=== PATIENT | male | born 1940 | race Caucasian/White ===

== ENCOUNTER 2018-07-12 07:40 | Emergency (ER) | payer MEDICARE ==
[~2018-07-12] VITALS: Ht 177.8 cm; Wt 95.9 kg
[2018-07-12 07:43] VITALS: BP 144/80
[2018-07-12] MEDS ORDERED: GABA300C PO (08:11)
[2018-07-12] MEDS ORDERED: ACYC5CRE2 TP (08:11)
[2018-07-12] MEDS ORDERED: ACYC-202 PO (08:11)
== END 2018-07-12 08:34 | disposition home or self-care (01) ==
LOC: ER 07:41
DX: B02.9 Zoster without complications (principal)
CPT/HCPCS: 99283

== ENCOUNTER 2020-04-20 09:00 | Emergency (ER) | payer MEDICARE ==
[~2020-04-20] VITALS: Ht 177.8 cm; Wt 88.0 kg
[~2020-04-20 09:00] MED LIST: GABA300C PO
[2020-04-20 09:02] VITALS: BP 110/80
[2020-04-20] MEDS ORDERED: NYST1000 PO (09:31)
== END 2020-04-20 09:46 | disposition home or self-care (01) ==
LOC: ER 09:00
DX: B37.0 Candidal stomatitis (principal); Z79.899 Other long term (current) drug therapy
CPT/HCPCS: 99284

== ENCOUNTER 2021-09-03 09:50 | Emergency (ER) | payer MEDICARE ==
[~2021-09-03] VITALS: Ht 175.3 cm; Wt 90.9 kg
[2021-09-03 10:23] LABS: BASOPHILS % (AUTO) 0.7 % (0-1); EOSINOPHILS # (AUTO) 0.3 X10'3 (0-0.9); HEMATOCRIT 38.4 % (42.0-52.0); HEMOGLOBIN 13.2 g/dl (14.0-17.9); LYMPHOCYTES # (AUTO) 1.3 X10'3 (1.1-4.8); LYMPHOCYTES % (AUTO) 28.9 % (21-51); MEAN CORPUSCULAR HEMOGLOBIN 30.5 PG (27.0-31.0); MEAN CORPUSCULAR HGB CONC 34.4 g/dL (33.0-36.5); MEAN CORPUSCULAR VOLUME 88.6 FL (78-98); MONOCYTES # (AUTO) 0.3 X10'3 (0-0.9); MONOCYTES % (AUTO) 6.9 % (2-12); NEUTROPHILS # (AUTO) 2.5 X10'3 (1.8-7.7); NEUTROPHILS % (AUTO) 57.5 % (42-75); PLATELET COUNT 203 X10'3 (140-440); RED BLOOD COUNT 4.33 X10'6 (4.70-6.10); RED CELL DISTRIBUTION WIDTH 13.1 % (11.5-14.5); WHITE BLOOD COUNT 4.4 X10'3 (4.5-11.0)
[2021-09-03 10:39] LABS: ALANINE AMINOTRANSFERASE 41 U/L (12-78); ALBUMIN 3.7 G/DL (3.4-5.0); ALBUMIN/GLOBULIN RATIO 1.1 (1.1-1.5); ALKALINE PHOSPHATASE 70 IU/L (46-116); ANION GAP 9 (8-16); ASPARTATE AMINO TRANSFERASE 25 U/L (10-37); BILIRUBIN,TOTAL 0.4 MG/DL (0.1-1.0); BLOOD UREA NITROGEN 10 MG/DL (7-18); BUN/CREATININE RATIO 10.9 (5.4-32.0); CALCIUM 8.2 MG/DL (8.5-10.1); CHLORIDE 105 MMOL/L (99-107); CREATININE 0.92 MG/DL (0.60-1.10); GLUCOSE 88 MG/DL (70-104); POTASSIUM 3.9 MMOL/L (3.5-5.1); SODIUM 141 MMOL/L (135-145); TOTAL CARBON DIOXIDE 26.9 MMOL/L (24-32); TOTAL PROTEIN 7.2 G/DL (6.4-8.2); eGFR 80 ML/MIN
--- NOTE | 2021-09-03 10:40 | NUR ---
ok with not starting an IV.
--- NOTE | 2021-09-03 11:03 | NUR ---
Pt awaiting lab results. No apparent distress or needs at this time
[2021-09-03 11:51] VITALS: BP 154/86
== END 2021-09-03 11:52 | disposition home or self-care (01) ==
LOC: ER 09:50
DX: R07.89 Other chest pain (principal); M54.89 Other dorsalgia; R05.9 Cough, unspecified; Z79.899 Other long term (current) drug therapy
CPT/HCPCS: 36415; 71045; 80053; 83880; 84484; 85025; 93005; 99285

== ENCOUNTER 2022-05-02 13:41 | Emergency (ER) | payer MEDICARE ==
[~2022-05-02] VITALS: Ht 176.5 cm; Wt 88.6 kg
[2022-05-02 14:35] LABS: BASOPHILS % (AUTO) 0.8 % (0-1); EOSINOPHILS # (AUTO) 0.2 X10'3 (0-0.9); EOSINOPHILS % (AUTO) 3.8 % (0-6); HEMATOCRIT 40.3 % (42.0-52.0); HEMOGLOBIN 13.8 g/dl (14.0-17.9); LYMPHOCYTES # (AUTO) 1.3 X10'3 (1.1-4.8); LYMPHOCYTES % (AUTO) 26.6 % (21-51); MEAN CORPUSCULAR HEMOGLOBIN 29.5 PG (27.0-31.0); MEAN CORPUSCULAR HGB CONC 34.3 g/dL (33.0-36.5); MEAN CORPUSCULAR VOLUME 86.1 FL (78-98); MEAN PLATELET VOLUME 8.3 FL (7.4-10.4); MONOCYTES # (AUTO) 0.3 X10'3 (0-0.9); MONOCYTES % (AUTO) 7.1 % (2-12); NEUTROPHILS % (AUTO) 61.7 % (42-75); PLATELET COUNT 195 X10'3 (140-440); RED BLOOD COUNT 4.68 X10'6 (4.70-6.10); RED CELL DISTRIBUTION WIDTH 13.5 % (11.5-14.5); WHITE BLOOD COUNT 4.8 X10'3 (4.5-11.0)
[2022-05-02 14:49] LABS: ALANINE AMINOTRANSFERASE 35 U/L (12-78); ALBUMIN 3.8 G/DL (3.4-5.0); ALBUMIN/GLOBULIN RATIO 1.1 (1.1-1.5); ALKALINE PHOSPHATASE 72 IU/L (46-116); ANION GAP 4 (8-16); ASPARTATE AMINO TRANSFERASE 21 U/L (10-37); BILIRUBIN,TOTAL 0.6 MG/DL (0.1-1.0); BLOOD UREA NITROGEN 11 MG/DL (7-18); BUN/CREATININE RATIO 11.6 (5.4-32.0); CALCIUM 9.1 MG/DL (8.5-10.1); CHLORIDE 105 MMOL/L (99-107); CREATININE 0.95 MG/DL (0.60-1.10); GLUCOSE 94 MG/DL (70-104); POTASSIUM 4.2 MMOL/L (3.5-5.1); SODIUM 139 MMOL/L (135-145); TOTAL PROTEIN 7.2 G/DL (6.4-8.2); eGFR 76 ML/MIN
[2022-05-02 15:34] VITALS: BP 136/80
[2022-05-02] MEDS ORDERED: MECL-226 PO (18:53)
[2022-05-02] MEDS ORDERED: meclizine 12.5mg tablet PO ONE ×2 (18:55→19:40)
--- NOTE | 2022-05-02 19:39 | NUR ---
12.5 mg meclizine pill dropped on floor. New order put in to replace in [facility]
== END 2022-05-02 19:50 | disposition home or self-care (01) ==
LOC: ER 13:42
DX: R42 Dizziness and giddiness (principal); H92.02 Otalgia, left ear; Z79.899 Other long term (current) drug therapy
CPT/HCPCS: 36415; 70544; 70547; 70551; 71045; 80053; 83880; 84484; 85025; 93005; 99285; J8597

== ENCOUNTER 2023-11-09 14:30 | Emergency (ER) | payer MEDICARE ==
[~2023-11-09] VITALS: Ht 176.5 cm; Wt 90.9 kg
[~2023-11-09 14:30] MED LIST changes: +MECL-226 PO
[2023-11-09 14:32] VITALS: BP 131/72; PULSE 67; RESP 18; O2SAT 96
[2023-11-09 16:49] VITALS: TEMP 98.7
== END 2023-11-09 17:27 | disposition home or self-care (01) ==
LOC: ER 14:30
DX: S92.425A Nondisplaced fracture of distal phalanx of left great toe, initial encounter for closed fracture (principal); W54.1XXA Struck by dog, initial encounter; Y93.89 Activity, other specified; Y92.89 Other specified places as the place of occurrence of the external cause; Y99.8 Other external cause status
CPT/HCPCS: 73630; 99283; L3260

== ENCOUNTER 2024-06-07 09:18 | Day surgery (SDC) | payer MEDICARE ==
[2024-06-02 15:35] LABS: BASOPHILS % (AUTO) 0.7 % (0-1); EOSINOPHILS # (AUTO) 0.2 X10'3 (0-0.9); LYMPHOCYTES # (AUTO) 1.6 X10'3 (1.1-4.8); LYMPHOCYTES % (AUTO) 26.6 % (21-51); MEAN CORPUSCULAR HEMOGLOBIN 30.3 PG (27.0-31.0); MEAN CORPUSCULAR HGB CONC 34.1 g/dL (33.0-36.5); MEAN CORPUSCULAR VOLUME 88.9 FL (78-98); MONOCYTES # (AUTO) 0.4 X10'3 (0-0.9); MONOCYTES % (AUTO) 6.1 % (2-12); NEUTROPHILS # (AUTO) 3.8 X10'3 (1.8-7.7); NEUTROPHILS % (AUTO) 62.6 % (42-75); PRE OP HEMATOCRIT 41.6 % (42.0-52.0); PRE OP HEMOGLOBIN 14.2 g/dL (14.0-17.9); PRE OP PLATELET COUNT 215 X10'3 (140-440); PRE OP WHITE BLOOD COUNT 6.1 10'3 (4.8-10.8); RED BLOOD COUNT 4.68 X10'6 (4.70-6.10); RED CELL DISTRIBUTION WIDTH 14.2 % (11.5-14.5)
[2024-06-02 15:46] LABS: ALBUMIN 3.9 G/DL (3.4-5.0); ALBUMIN/GLOBULIN RATIO 1.1 (1.1-1.5); ALKALINE PHOSPHATASE 84 IU/L (46-116); BLOOD UREA NITROGEN 14 MG/DL (7-18); BUN/CREATININE RATIO 12.4 (10.0-20.0); CALCIUM 8.6 MG/DL (8.5-10.1); CHLORIDE 104 MMOL/L (99-107); CREATININE 1.13 MG/DL (0.60-1.10); PRE OP ALT 31 U/L (30-65); PRE OP ANION GAP 6 (8-16); PRE OP AST 18 U/L (10-37); PRE OP BILIRUB, TOTAL 0.7 MG/DL (0.0-1.0); PRE OP GLUCOSE 94 MG/DL (70-104); PRE OP POTASSIUM 4.1 MMOL/L (3.4-5.1); PRE OP SODIUM 140 MMOL/L (135-145); TOTAL CARBON DIOXIDE 30.1 MMOL/L (24-32); TOTAL PROTEIN 7.6 G/DL (6.4-8.2); eGFR 62 ML/MIN
[~2024-06-07] VITALS: Ht 175.3 cm; Wt 91.2 kg
[2024-06-07] VITALS (16 sets, daily range): BP systolic 124–155; BP diastolic 58–85; PULSE 52–73; RESP 10–18; TEMP 97.4; O2SAT 94–100
[2024-06-07] MEDS: CefTRIAXone 2gm/D5W 50ml IV ONE (09:00)
[~2024-06-07 09:18] MED LIST changes: +ATOR10TA70 PO; +FLO0.4C PO; -GABA300C PO; -MECL-226 PO; +OMEP20CA16 PO; +SERT-434 PO; +TERB250T89 PO; +ceFAZolin 2gm in dextrose, iso 50 ML IV ONE
[2024-06-07] MEDS: famotidine 20mg tablet PO ONE (10:08)
[2024-06-07] MEDS: ringers solution, lacted 1,000 ML IV SCH (10:10)
[2024-06-07] MEDS ORDERED: acetaminophen 1,000mg/100ml IV 100 ML IV ONE (11:30)
[2024-06-07] MEDS ORDERED: proCHLORperazine 10 MG/2 ml inj IV PRN (11:30)
[2024-06-07] MEDS ORDERED: hydrALAZINE 20mg/ml inj. IV PRN (11:30)
[2024-06-07] MEDS ORDERED: morphine 4 MG/ML inj SYRINge IV PRN (11:30)
[2024-06-07] MEDS ORDERED: ondansetron/PF 4mg/2ml inj IV PRN (11:30)
[2024-06-07] MEDS ORDERED: labetalol 20mg/4ml (5mg/ml) syringe IV PRN (11:30)
[2024-06-07] MEDS ORDERED: HYDROmorphone/PF 0.2 MG/ML SYRINGE IV PRN ×2 (11:30)
[2024-06-07] MEDS ORDERED: ringers solution, lacted 1,000 ML IV SCH (11:30)
[2024-06-07] MEDS ORDERED: meperidine/PF 25mg/ml syringe IV PRN (11:30)
[2024-06-07] MEDS ORDERED: morphine 2 MG/ML inj. syringe IV PRN (11:30)
[2024-06-07] MEDS ORDERED: sevoflurane 250ml liquid IH ONE (11:46)
[2024-06-07] MEDS ORDERED: fentaNYL/PF 50MCG/1 ML 2ML syringe ONE (11:51)
[2024-06-07] MEDS ORDERED: midazolam 1 mg/ML 2ml injection ONE (11:57)
[2024-06-07] MEDS ORDERED: dexamethasone sod phosphate 4mg/ml inj. ONE (12:00)
[2024-06-07] MEDS ORDERED: LIDOcaine 2% (20mg/ml) 5ml vial ONE (12:00)
[2024-06-07] MEDS ORDERED: propofol inj 20 ML IV ONE (12:00)
[2024-06-07] MEDS ORDERED: ondansetron/PF 4mg/2ml inj ONE (12:00)
[2024-06-07] MEDS ORDERED: sugammadex 200mg/2ml injection IV ONE (12:39)
== END 2024-06-07 15:49 | disposition home or self-care (01) ==
LOC: PAS 09:18
PROVIDERS: ATTEND Urology
DX: N40.1 Benign prostatic hyperplasia with lower urinary tract symptoms (principal); R35.1 Nocturia; E78.5 Hyperlipidemia, unspecified; R35.0 Frequency of micturition; K21.9 Gastro-esophageal reflux disease without esophagitis; M19.90 Unspecified osteoarthritis, unspecified site; G47.30 Sleep apnea, unspecified; G43.909 Migraine, unspecified, not intractable, without status migrainosus; Z79.899 Other long term (current) drug therapy; N32.89 Other specified disorders of bladder; Z98.890 Other specified postprocedural states; Z96.651 Presence of right artificial knee joint
CPT/HCPCS: 36415; 52630; 80053; 82948; 85025; 93005; A4346; A4355; A4618; J0690; J0696; J1100; J2003; J2250; J2405; J2704; J3010; J3490; J7030; J7120; Z7506; Z7508; Z7512; Z7610

== ENCOUNTER 2024-10-12 15:04 | Emergency (ER) | payer MEDICARE ==
[~2024-10-12] VITALS: Ht 177.8 cm; Wt 91.2 kg
[~2024-10-12 15:04] MED LIST changes: -FLO0.4C PO; +TAMS-55 PO; -ceFAZolin 2gm in dextrose, iso 50 ML IV ONE
[2024-10-12 15:10] VITALS: BP 152/79; PULSE 58; RESP 15; O2SAT 98
[2024-10-12] MEDS ORDERED: ALBU8HFA PO (15:51)
[2024-10-12 16:10] VITALS: TEMP 98.6
== END 2024-10-12 16:12 | disposition home or self-care (01) ==
LOC: ER 15:05
DX: R05.9 Cough, unspecified (principal); E78.00 Pure hypercholesterolemia, unspecified
CPT/HCPCS: 71046; 99283

== ENCOUNTER 2024-11-14 14:45 | Emergency (ER) | payer MEDICARE ==
[~2024-11-14] VITALS: Ht 175.3 cm; Wt 90.7 kg
[2024-11-14 14:53] VITALS: BP 155/78; PULSE 97; RESP 18; TEMP 97.6; O2SAT 98
--- NOTE | 2024-11-14 16:24 | Physician Documentation ---
History of Present Illness ~ Chief Complaint: Cough Stated Complaint: SORE THROAT Time Seen by MD: 15:38 OK to notify your PCP?: Yes Primary Medical Doctor: Dr Reyna Source: patient Mode of Arrival: POV Exam Limitations: no limitations CHRIS Baum is an 84-year-old male presenting with a sore throat and productive cough for the past month. Today he took a COVID test at home which was positive. He states that about a month ago he had a chest x-ray which was normal although he is having a productive cough with white sputum. He denies any fevers or shortness of breath or other symptoms. 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 No medications taken for his symptoms prior to arrival Medication Reconciliation Allergies: Coded Allergies: No Known Allergies (Unverified , 05/02/22) Scheduled Atorvastatin Calcium (Atorvastatin Calcium), 1 TAB PO HS, (Reported) Omeprazole (Omeprazole), 1 CAP PO HS, (Reported) Sertraline HCl (Sertraline HCl), 1 TAB PO HS, (Reported) Tamsulosin Hcl* (Flomax*), 1 CAP PO HS, (Reported) Terbinafine Hcl (Terbinafine Hcl), 1 TAB PO HS, (Reported) Discontinued Medications albuterol inhaler (Pro-Air Inhaler), 1-2 PUFFS PO Q4H PRN for shortness of breath Discontinued Reason: Auto Discontinued Past Medical History Past Medical History: No Pertinent History, High Cholesterol Past Surgical History: noncontributory Alcohol Use: Rarely Drug Use: none Lives with: Spouse Lives In: Home Occupation: retired Review of Systems All Other Systems at this time: Reviewed and Negative Physical Exam Vital Signs: RN Vital Signs have been reviewed: Yes, Temperature: 97.6, Source: Temporal, Heart Rate: 97, Respiratory Rate: 18, BP: 155/78, Pulse Oximetry: 98, Weight: 90.700 Pulse Oximetry Reflects: adequate oxygenation Physical Exam General: Well developed, well nourished, no distress. HEENT: Atraumatic, normal conjunctiva, moist mucous membranes. Neck: Full range of motion, supple. Respiratory: Lungs clear, no respiratory distress. No wheezes, rhonchi, or crackles heard. Chest: No accessory muscle use. Cardiovascular: Regular rate and rhythm. S1 and S2 normal. Extremities: Normal range of motion, nontender, normal capillary refill, no deformity. Neurologic: Oriented x4. Psychiatric: Normal mood and affect. Skin: Normal color, warm and dry. No edema, no ecchymosis Progress Results/Orders Reviewed/noted all lab results: Yes Results/Orders Orders - MARYSOL NEUMANN Covid19 Binax Poc Result Entry (11/14/24 15:32) Chest,Single View (11/14/24 16:39) Completed Orders - MARYSOL NEUMANN EXTRAS CASTING DIRECTOR Chest,Single View (11/14/24 16:39) Vital Signs 11/14/24 11/14/24 14:53 15:33 Temp 97.6 Pulse 97 Resp 18 B/P (MAP) 155/78 Pulse Ox 98 Laboratory Tests Test 11/14/24 15:36 SARS-CoV-2 Antigen (Rapid) Negative EKG/XRAY/CT/US/VASC/MRI Chest X-Ray : Additional Comments Chest x-ray: as interpreted by me; no large effusion, no large infiltrate, normal mediastinum. Medical Decision Making Findings Bautista is an 84-year-old male with a productive cough with white sputum and sore throat for the past month. He had a positive home COVID test today and is requesting for us to test him. COVID test ordered. Due to his productive cough, I have also ordered a chest x-ray to rule out pneumonia. He is COVID test was negative and his chest x-ray was normal. We discussed that this is likely due to a viral illness that can sometimes take weeks to recover from but he does not need any antibiotics at this time. We discussed trying honey to help with his cough and following up with his primary care provider in the next 3 days. He should return back here for any new or worsening symptoms. He agrees with this plan. Differential Dx:Considerations: Include: Influenza, Pneumonia, Pnuemonitis Departure Disposition: 01 HOME / SELF CARE / HOMELESS Impression: Primary Impression: Cough Discharge Instructions: Cough, Adult Additional Instructions: You were tested today in the emergency department for COVID and was negative. Your chest x-ray was also negative for pneumonia. We discussed trying honey to help with your cough and if this cough is not resolving to please follow up with her primary care provider. This is likely due to a viral illness and does not require any antibiotics. Follow up with her primary care provider in the next 3 days and return back here for any new or worsening symptoms. Referrals: NO PRIMARY CARE PROVIDER (PCP) Education Educated: Patient Educated regarding: diagnosis, treatment, prognosis, need for follow up Signature Scribe Signature: . Attestation: Scribed for Marysol Neumann Cardiovascular Surgeon by Marysol Ellsworth NP . 11/14/24 17:35 MARYSOL NEUMANN EX[employer] CASTING DIRECTOR November 14, 2024 16:24
--- NOTE | 2024-11-14 16:55 | RADIOLOGY REPORT ---
Chest x-ray AP portable Comparison: 05/02/2022 CLINICAL INDICATION: possible covid, productive cough FINDINGS: Heart size is slightly prominent.. No infiltrates or effusions. No bony thoracic abnormalit ies. IMPRESSION: 1. No acute cardiopulmonary pathology
== END 2024-11-14 17:44 | disposition home or self-care (01) ==
LOC: ER 14:45
DX: R05.9 Cough, unspecified (principal); Z20.822 Contact with and (suspected) exposure to COVID-19
CPT/HCPCS: 36415; 71045; 87811; 99284